=== PATIENT | female | born 1950 | race Caucasian/White ===

== ENCOUNTER 2017-02-19 10:19 | Outpatient (CLI) | payer OTHER | END 2017-02-19 20:58 | disposition home or self-care (01) | LOC: SMA 10:19 | PROVIDERS: ATTEND Family Medicine | DX: Z12.31 Encounter for screening mammogram for malignant neoplasm of breast (principal) | CPT/HCPCS: G0202 ==

== ENCOUNTER 2018-02-11 09:59 | Outpatient (CLI) | payer OTHER, MEDICARE | END 2018-02-11 21:34 | disposition home or self-care (01) | LOC: SMA 09:59 | PROVIDERS: ATTEND Family Medicine | DX: Z12.31 Encounter for screening mammogram for malignant neoplasm of breast (principal); R92.1 Mammographic calcification found on diagnostic imaging of breast | CPT/HCPCS: 77067 ==

== ENCOUNTER 2019-10-18 10:22 | Outpatient (CLI) | payer OTHER | END 2019-10-18 18:18 | disposition home or self-care (01) | LOC: SMA 10:22 | PROVIDERS: ATTEND Family Medicine | DX: Z12.31 Encounter for screening mammogram for malignant neoplasm of breast (principal); N63.21 Unspecified lump in the left breast, upper outer quadrant | CPT/HCPCS: 77067 ==